=== PATIENT | male | born 1955 | race Caucasian/White ===

== ENCOUNTER 2017-12-25 12:18 | Inpatient (IN) | payer OTHER ==
[~2017-12-25] VITALS: Ht 170.2 cm; Wt 80.3 kg
[2017-12-25 12:22] VITALS: Ht 170.2 cm; Wt 80.3 kg
[2017-12-25 14:02] LABS: BASOPHIL % 0.5 % (0-2); PLATELET COUNT 172 x10^3mcL (130-400); RED CELL DISTRIBUTION WIDTH 14.4 % (11.5-14.5)
[2017-12-25 14:44] LABS: CALCIUM 8.6 mg/dL (8.5-10.1); CARBON DIOXIDE 28.7 mmol/L (21-32); CHLORIDE SERUM 112 mmol/L (98-107); CREATININE SERUM 0.8 mg/dL (0.7-1.3); GFR1 > 60 mL/min; GLUCOSE SERUM 117 mg/dL (74-106); POTASSIUM SERUM 3.7 mmol/L (3.5-5.1); SODIUM SERUM 145 mmol/L (136-145)
[2017-12-25 14:49] LABS: ALKALINE PHOSPHATASE 75 U/L (46-116); ALT/SGPT 96 U/L (16-63); AST/SGOT 42 U/L (15-37); BILIRUBIN TOTAL 0.77 mg/dL (0.20-1.00); TOTAL PROTEIN, SERUM 7.6 g/dL (6.4-8.2)
[2017-12-25 15:28] LABS: CHOLESTEROL/HDL RATIO 4.6
[2017-12-25 16:49] VITALS: BP 158/87
[2017-12-25 18:11] LABS: T3 TOTAL 1.59 ng/mL
[2017-12-25 18:14] LABS: FREE T4 0.88 ng/dL (0.76-1.46); FREE THYROXINE INDEX 2.4 ug/dL (1.4-4.5); T4(THYROXINE) 9.1 ug/dL (4.7-13.3)
[2017-12-25 19:06] LABS: MAGNESIUM 2.1 mg/dL (1.8-2.4); PHOSPHOROUS 3.2 mg/dL (2.5-4.9)
[2017-12-25 20:08] VITALS: BP 116/73
[2017-12-25 23:29] LABS: microscopic required? NO
[2017-12-25 23:48] LABS: UA SPECIFIC GRAVITY 1.015 (1.005-1.035); urine erythrocyte NEGATIVE (NEGATIVE)
[2017-12-26 00:03] LABS: AMPHETAMINE QUAL UR NONE DETECTED (See below)
[2017-12-26 05:17] VITALS: BP 130/82
[2017-12-26 06:53] LABS: BASOPHIL % 0.5 % (0-2); PLATELET COUNT 158 x10^3mcL (130-400); RED CELL DISTRIBUTION WIDTH 14.3 % (11.5-14.5)
[2017-12-26 07:20] LABS: CALCIUM 8.2 mg/dL (8.5-10.1); CHLORIDE SERUM 108 mmol/L (98-107); CREATININE SERUM 0.8 mg/dL (0.7-1.3); GFR1 > 60 mL/min; GLUCOSE SERUM 120 mg/dL (74-106); POTASSIUM SERUM 4.4 mmol/L (3.5-5.1); SODIUM SERUM 141 mmol/L (136-145)
[2017-12-26 09:33] VITALS: BP 114/74
[2017-12-26 12:47] VITALS: BP 138/90
[2017-12-26 16:45] VITALS: BP 118/74
[2017-12-26 20:56] VITALS: BP 132/75
[2017-12-27] VITALS (7 sets, daily range): BP systolic 99–122; BP diastolic 51–77
[2017-12-27 06:31] LABS: BASOPHIL % 0.4 % (0-2); PLATELET COUNT 151 x10^3mcL (130-400)
[2017-12-27 06:50] LABS: CALCIUM 8.2 mg/dL (8.5-10.1); CARBON DIOXIDE 26.4 mmol/L (21-32); CHLORIDE SERUM 106 mmol/L (98-107); CREATININE SERUM 0.8 mg/dL (0.7-1.3); GFR1 > 60 mL/min; GLUCOSE SERUM 110 mg/dL (74-106); PHOSPHOROUS 2.7 mg/dL (2.5-4.9); POTASSIUM SERUM 3.9 mmol/L (3.5-5.1); SODIUM SERUM 139 mmol/L (136-145)
[2017-12-27] MEDS ORDERED: LIPI10 PO (17:33)
[2017-12-27] MEDS ORDERED: ZES5 PO (17:37)
[2017-12-27] MEDS ORDERED: ECO81 PO (17:40)
[2017-12-27] MEDS ORDERED: TOPROL XL25 MG PO (17:59)
[2017-12-27] MEDS ORDERED: NOR5 PO (18:03)
[2017-12-27] MEDS ORDERED: HYDROCHLOROTHIA25 MG PO (18:05)
[2017-12-27] MEDS ORDERED: POTASSIUM CHLO10 MEQ PO (18:06)
== END 2017-12-27 21:35 | disposition home or self-care (01) | DRG 313 ==
LOC: ED 12:18 → DU 15:23
PROVIDERS: Emergency Medicine; Internal Medicine
DX: R07.89 Other chest pain (principal); E11.65 Type 2 diabetes mellitus with hyperglycemia; I10 Essential (primary) hypertension; E78.5 Hyperlipidemia, unspecified; R74.0 Nonspecific elevation of levels of transaminase and lactic acid dehydrogenase [LDH]; F17.210 Nicotine dependence, cigarettes, uncomplicated; E83.51 Hypocalcemia; Z68.27 Body mass index [BMI] 27.0-27.9, adult; Z71.6 Tobacco abuse counseling; Z90.49 Acquired absence of other specified parts of digestive tract; Z72.89 Other problems related to lifestyle; Z23 Encounter for immunization
CPT/HCPCS: 82962; 83880; 84439; 90658; A9500; J2785; J7030; Q0092

== ENCOUNTER 2018-01-16 17:03 | Inpatient (IN) | payer OTHER ==
[~2018-01-16] VITALS: Ht 170.2 cm; Wt 80.3 kg
[~2018-01-16 17:03] MED LIST: ECO81 PO; HYDROCHLOROTHIA25 MG PO; LIPI10 PO; NOR5 PO; POTASSIUM CHLO10 MEQ PO; TOPROL XL25 MG PO; ZES5 PO
[2018-01-16 17:47] LABS: BASOPHIL % 0.7 % (0-2); PLATELET COUNT 157 x10^3mcL (130-400); RED CELL DISTRIBUTION WIDTH 13.6 % (11.5-14.5)
[2018-01-16 18:05] LABS: CARBON DIOXIDE 26.6 mmol/L (21-32); CHLORIDE SERUM 104 mmol/L (98-107); CREATININE SERUM 0.8 mg/dL (0.7-1.3); GFR1 > 60 mL/min; GLUCOSE SERUM 99 mg/dL (74-106); POTASSIUM SERUM 3.2 mmol/L (3.5-5.1); SODIUM SERUM 140 mmol/L (136-145)
[2018-01-16 19:46] LABS: CHOLESTEROL/HDL RATIO 3.8
[2018-01-16 19:58] LABS: T3 TOTAL 1.6 ng/mL
[2018-01-16 20:48] VITALS: BP 152/92
[2018-01-16 20:50] VITALS: Ht 170.2 cm; Wt 80.3 kg
[2018-01-16 21:17] LABS: FREE T4 0.78 ng/dL (0.76-1.46); FREE THYROXINE INDEX 2.7 ug/dL (1.4-4.5); T4(THYROXINE) 9.4 ug/dL (4.7-13.3)
[2018-01-16 22:23] LABS: microscopic required? NO
[2018-01-16 22:31] LABS: UA SPECIFIC GRAVITY 1.015 (1.005-1.035); urine erythrocyte NEGATIVE (NEGATIVE)
[2018-01-17 06:25] VITALS: BP 122/75
[2018-01-17 06:54] LABS: BASOPHIL % 0.5 % (0-2); PLATELET COUNT 147 x10^3mcL (130-400); RED CELL DISTRIBUTION WIDTH 13.5 % (11.5-14.5)
[2018-01-17 07:30] LABS: CALCIUM 8.3 mg/dL (8.5-10.1); CARBON DIOXIDE 27.1 mmol/L (21-32); CHLORIDE SERUM 106 mmol/L (98-107); CREATININE SERUM 0.8 mg/dL (0.7-1.3); GFR1 > 60 mL/min; GLUCOSE SERUM 108 mg/dL (74-106); PHOSPHOROUS 2.8 mg/dL (2.5-4.9); POTASSIUM SERUM 3.6 mmol/L (3.5-5.1); SODIUM SERUM 139 mmol/L (136-145)
[2018-01-17 09:24] VITALS: BP 120/76
[2018-01-17 12:34] VITALS: BP 106/73
[2018-01-17 14:46] VITALS: BP 106/73
== END 2018-01-17 16:03 | disposition home or self-care (01) | DRG 205 ==
LOC: ED 17:03 → DU 19:12
PROVIDERS: Emergency Medicine; General Practice
DX: M94.0 Chondrocostal junction syndrome [Tietze] (principal); J18.9 Pneumonia, unspecified organism; E11.65 Type 2 diabetes mellitus with hyperglycemia; E87.6 Hypokalemia; I10 Essential (primary) hypertension; F17.210 Nicotine dependence, cigarettes, uncomplicated; E78.5 Hyperlipidemia, unspecified; E78.00 Pure hypercholesterolemia, unspecified; I25.10 Atherosclerotic heart disease of native coronary artery without angina pectoris
CPT/HCPCS: 82962; 84439; 85378; J0696; J1885; J7030; Q0092